=== PATIENT | male | born 1935 | race African-American/Black ===

== ENCOUNTER 2017-05-24 09:44 | Inpatient (IN) | payer MEDICARE ==
--- NOTE | ~2017-05-24 | OR ---
Unit #: [id number] #: [id number] Patient: DELMIS ELISE [id number] [address] [address] [id number] I MR#: [id number] NAME: DELMIS ELISE. ROOM: [facility] Date of Procedure: 05/24/2017 Admission Date: 05/24/2017 Surgeon: Tony Sage M.D. : 1935 Attending Physician: Tony Sage M.D. Primary Care Physician: Martinez Crockett M.D. OPERATIVE REPORT PREOPERATIVE DIAGNOSES 1. 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 2. Periprosthetic left humeral shaft fracture. POSTOPERATIVE DIAGNOSES 1. 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 2. Periprosthetic left humeral shaft fracture. PROCEDURES PERFORMED 1. Removal of left reverse shoulder arthroplasty including glenoid and humeral components. 2. Intramedullary fixation of left humeral shaft fracture. 3. Placement of antibiotic spacer. 4. Arthrotomy with debridement and extensive synovectomy of glenohumeral joint. IMPLANTS P[employer] size 10 cemented antibiotic spacer, modified for an extended length utilizing a threaded Steinmann pin. DRAFTING INSTRUCTOR Ivanna Arnold. ANESTHESIA General with interscalene nerve block. ESTIMATED BLOOD LOSS 150 mL. COMPLICATIONS None apparent. DRAINS None. SPECIMENS 1. Humeral membrane to microbiology and pathology. 2. Glenoid membrane to pathology and microbiology. 3. Culture swabs to both humeral and glenoid components. Unit #: [id number] #: [id number] Patient: DELMIS ELISE INDICATIONS FOR PROCEDURE Mr. Elise is an 82-year-old gentleman, who has undergone a previous left reverse shoulder arthroplasty. He initially experienced a dislocation in the postoperative period and cyst developed a large hematoma and seroma. When this was discovered, he underwent a revision operation, which initially did well. He did not develop a radiolucent line postoperatively now. Since February, he had developed rapid progressive destructive osteolysis of the humeral metaphysis and proximal diaphysis. He presented with increase in pain in his left shoulder. He was found to have a periprosthetic humerus fracture. The overall findings were consistent with an infectious process. We discussed explantation of all components, placement of an antibiotic spacer, and stabilization of the humerus fracture with intramedullary nail and antibiotic intramedullary nail from the antibiotic spacer. He elected to proceed. DESCRIPTION OF PROCEDURE The patient was identified in the preoperative holding area. The operative site was marked. A regional block was performed. The patient was brought to the operating room and placed supine on the operating table. Preoperative antibiotics were held, pending cultures. A general anesthetic was induced. The patient was positioned in a beach-chair position. The left upper extremity was prepped and draped in sterile fashion. The previous incision was reopened. Dissection carried down through subcutaneous tissues. The deltopectoral interval was identified. Soft tissue flaps were elevated medially and laterally. The deltopectoral interval was divided and dissection carried down to the humerus itself. Rather than immediately encountering humeral bone, proximally the metaphysis being encountered directly cement mantle and the proximal portion of the implant. There was an extensive osteolysis proximally with essentially no discernible bone around the rim of the implant. There was a small fragment at proximal bone posteriorly. The shoulder was dislocated anteriorly. The humeral component was removed easily by hand. The complete cement mantle was intact completely well adhered to the implant. There was no bonding or remaining cement to the pit river host bone. The humeral membrane was taken for specimen for pathology and microbiology. The implant was swabbed for cultures. The canal was curetted. We then drilled out the cement restrictor and reamed down into the intact shaft distally. This was done under C-arm imaging. Attention was then turned to the glenoid component. The glenosphere was removed. There was an infectious appearing membrane behind the implant. This was taken again for pathology and microbiology. The implant itself was again swabbed, removed all the peripheral locking screws and the base plate itself unscrewed. It was not ingrown to the underlying glenoid. Although, it was not grossly loose as the humeral component was. The glenohumeral joint was then extensively debrided, removing all infectious appearing membrane type tissue and synovium. The joint was debrided with a combination of Bovie electrocautery, curettes, rongeurs, and sharp excisional debridement with a knife and Metzenbaum scissors. Attention was turned back to the humerus. We reamed the canal and determined to accept a size 10 stem. This was confirmed under C-arm imaging. We then mixed antibiotic cement with additional vancomycin powder into the prefabricated mold. Threaded Steinmann pin was advanced the cement was curing. Once this was secured, the mold was Unit #: [id number] #: [id number] Patient: DELMIS ELISE removed and then another batch of cement mixed. A 32-Polish chest tube was used to inject cement around the distal portion of the threaded Steinmann pin. This was then removed, giving us a long spacer to effectively span the humerus fracture. The fracture was reduced under C-arm imaging. The antibiotic spacer was then passed across the fracture under C-arm imaging to provide some stabilization at this level. Another third batch of cement was then mixed in the proximal component, then loosely cemented around metaphyseal bone. This was allowed to cure. Prior to cementing in the implant, we had irrigated with dilute Betadine solution followed by pulsatile lavage. The wound was then closed in a layered fashion with 0 PDS, 2-0 PDS, and a running Monocryl in the skin. DISPOSITION Stable to the recovery room. Dictated by... Robert Soto/aniya TD: 05/25/2017 15:23 JOB #: [id number] OPERATIVE REPORT Page 1 of 1 X Tony Sage MD PROCEDURE OPERATIVE NOTE
--- NOTE | ~2017-05-24 | DS ---
Unit #: [id number] #: [id number] Patient: DELMIS ELISE [id number] [address] [address] [id number] I MR#: [id number] NAME: DELMIS ELISE. ROOM: [facility] Age: 82 Sex: M Admission Date: 05/24/2017 : 1935 Discharge Date: 05/27/2017 Attending Physician: Tony Sage M.D. Primary Care Physician: Martinez Crockett M.D. DISCHARGE SUMMARY ADMITTING DIAGNOSIS Left reverse shoulder arthroplasty infection. DISCHARGE DIAGNOSIS Status post hardware removal with antibiotic spacer in the left shoulder and periprosthetic fracture. HISTORY OF PRESENT ILLNESS The patient is an 82-year-old male, who had undergone reverse shoulder arthroplasty by Dr. Sage. He is having increased left shoulder pain and presented to the office after falling approximately a week prior to his appointment that was on May 23, 2017. PAST MEDICAL HISTORY 1. Allergic rhinitis. 2. Arthritis. 3. 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 4. Gastroesophageal reflux disease. 5. Total knee arthroplasty. 6. High blood pressure. 7. High cholesterol. 8. Knee pain. 9. Shoulder pain. 10. Right rotator cuff tear. 11. Type 2 diabetes. ALLERGIES Penicillin. HOSPITAL COURSE Patient with pain in left shoulder on exam. Assessment with likely infection of prosthetic after reverse shoulder arthroplasty treatment is formulated for removal of hardware, antibiotic spacer placement. Patient agrees to proceed in this manner. Patient is admitted on day of procedure, May 24, 2017. Operatively, patient was found to have a periprosthetic left humeral shaft fracture which was fixated with an intramedullary nail. Patient tolerated this procedure well and was transferred to the PACU and then consequently to the orthopedic floor without any problems. Postoperatively, patient was seen by infectious disease. Cultures taken in the operating room did not demonstrate any growth. PICC line was placed for IV antibiotics and patient is ready for discharge on postop day three. DISCHARGE MEDICATIONS Unit #: [id number] #: [id number] Patient: DELMIS ELISE 1. Glucophage 1000 mg p.o. b.i.d. 2. Bystolic 10 mg one p.o. nightly. 3. Norvasc 5 mg one p.o. daily. 4. Multivitamin one p.o. daily. 5. Protonix 40 mg once daily. 6. Vancomycin per infectious disease will be dosed per pharmacy and adjusted through [facility] who will be administering this to him in his home. He will also receive cefepime 2 g IV q.12 hours through July 05, 2017. PLAN BMP two times a week. Weekly CBC, CRP, and sed rate. All of this to be arranged through infectious disease with [facility]. PICC line to be discontinued after the last dose of his antibiotics which currently are scheduled for July 05, 2017. Patient is placed on a probiotic of choice. Followup as an outpatient as scheduled with Dr. Sage in approximately 14 days. Sling stays intact. No use of the left upper extremity. Patient will undergo daily dressing changes. [facility] to follow as mentioned for IV antibiotics through ID. Patient may shower; however, he is not to get the incision wet. He will call our office with any questions or concerns, [phone]. Dictated by... Ivanna Rajput P.A.-C. for Robert Soto/jeffery TD: 05/30/2017 14:52 JOB #: [id number] DISCHARGE SUMMARY Page 1 of 1 X Ivanna Rajput DISCHARGE SUMMARY
--- NOTE | ~2017-05-24 | CR226 ---
[facility] A Service of [facility] & [facility] RADIOLOGY TEXT RESULTS PATIENT: DELMIS ELISE [facility] 470-01 : 37 UNIT #: [id number] AGE: [address]: Tony Sage MD SEX: M ORDER DR: [id number] [facility] [address]. [place], [place] [address] [id number] I MR#: [id number] Acc #: [id number] NAME: DELMIS ELISE : 1935 SEX: M STUDY DATE/TIME: 05/24/2017 17:05 [facility] ROOM: [facility] STUDY DESCRIPTION: CR Shoulder 1 View Lt Attending Physician: Tony Sage M.D. Ordering Physician: Tony Sage M.D. Primary Care Physician: Martinez Crockett M.D. MEDICAL IMAGING REPORT This report is preliminary unless electronic signature is present EXAMINATION Fluoroscopy up to 1 hour. DATE 05/24/2017 HISTORY Left shoulder prosthesis removal. COMPARISON Left shoulder radiograph, 05/23/2017. FINDINGS Seven spot intraoperative fluoroscopic images were obtained of the left shoulder by Dr. Sage, with 1 minute, 35 seconds fluoroscopy time recorded. Preexisting left shoulder prosthesis appears to have been removed and a cement spacer device with long intramedullary hung is seen stabilizing a fracture of the midshaft of the left humerus. Please refer to operative report for additional findings and recommendations. Dictated by... Tiki Bansal M.D. THIS IS AN ELECTRONICALLY VERIFIED REPORT Tiki Bansal M.D. at 05/25/2017 10:03 AM VERONICA/nancy TD: 05/24/2017 22:59 JOB #: [id number] MEDICAL IMAGING REPORT Page 1 of 1 COPY
--- NOTE | ~2017-05-24 | CO ---
Unit #: [id number] #: [id number] Patient: DELMIS ELISE [id number] [address] [place], [place] [address] [id number] I MR#: [id number] NAME: DELMIS ELISE. ROOM: [facility] Age: 82 Sex: M Admission Date: 05/24/2017 : 1935 Attending Physician: Tony Sage M.D. Primary Care Physician: Martinez Crockett M.D. Consultation Date: 05/25/2017 CONSULTATION REPORT REASON FOR CONSULTATION Antibiotic management in a patient with left shoulder arthroplasty infection. HISTORY OF PRESENT ILLNESS This is an 82-year-old pleasant male who has a history of left shoulder arthroplasty in October of 2016 for revision in November of 2016 secondary to dislocation. The patient reports that he since has developed some progressive pain and he had imaging and the doctors told him it was infected. He is now status post hardware removal secondary to left shoulder arthroplasty infection. Cultures and pathology are currently pending and the patient has been placed on vancomycin. Per the patient, he has an allergy to penicillin which causes hives and rash and he is unaware if he has ever taken any cephalosporins. ID was asked to evaluate for further antibiotic management. PAST MEDICAL HISTORY As previously stated above, also including allergic rhinitis, arthritis, GERD, hypertension, hyperlipidemia, diabetes type 2 and history of total knee replacement. SOCIAL HISTORY The patient lives with his who is retired nurse. He denies any alcohol, tobacco or drug use. ALLERGIES Penicillin causes hives and rash. MEDICATIONS The patient is currently on vancomycin. Other medications have been reviewed. Please refer to patient's MAR. REVIEW OF SYSTEMS The patient denies any fever, chills, nausea, vomiting, diarrhea at home. He reports that he never had any drainage from his incision site and it was intact. However, he had progressive pain. Patient currently complains of numbness and tingling in his hand when he lays flat and he has some pain in his shoulder at this time. PHYSICAL EXAMINATION GENERAL APPEARANCE: This is a no apparent distress male sitting on the side of the bed comfortably. VITAL SIGNS: Temperature 98.8. Pulse 86. Blood pressure 98/55. Respiratory rate 16. Unit #: [id number] #: [id number] Patient: DELMIS ELISE HEENT: His pupils are equal. NECK: Supple. CARDIOVASCULAR: S1, S2. Regular rate and rhythm. PULMONARY: Clear to auscultation bilaterally with no wheezes or rhonchi noted. ABDOMEN: Positive bowel sounds. Soft and nontender. EXTREMITIES: Left shoulder is currently in a dressing and a sling is in place. DIAGNOSTIC STUDIES LABORATORY: BUN 17, creatinine 0.5, sodium 139, potassium 3.7, chloride 107, CO2 26, CRP 0.5. WBC 9.1, hemoglobin 10.7, hematocrit 31.5, platelets 163. Sed rate 23. MICROBIOLOGY: Shoulder cultures are currently pending. IMAGING: Shows removal of the hardware. IMPRESSION This is an 82-year-old male with history of left shoulder arthroplasty in October 2016 with a revision in November of 2016 secondary to dislocation. The patient now has developed progressive pain and is found to have infection of his left shoulder arthroplasty. This has been removed and antibiotic beads and spacer have been placed. At this time, would recommend to continue vancomycin. We will add gram-negative coverage with Levaquin due to patient's history of penicillin allergy of hives and rash and never taking cephalosporins in the past. We will continue to follow OR cultures and pathology results. We will follow the patient's lab work. We will anticipate patient will need six weeks of antibiotic therapy and I will discuss with patient's the plan per the patient's request. Thank you for allowing us to participate in the care of this patient. Further recommendations will follow pending patient's clinical course. Dictated by... Sheba Ferrer, A.P.R.N. for Krishna Malagon M.D. Tim TD: 05/25/2017 09:24 JOB #: [id number] CONSULTATION REPORT Page 1 of 1 X X CONSULTATION REPORT
--- NOTE | ~2017-05-24 | CR229 ---
[facility] A Service of [facility] RADIOLOGY TEXT RESULTS PATIENT: DELMIS ELISE LOCATION: [facility] 470-01 : 37 UNIT #: [id number] AGE: [address]: Tony Sage MD SEX: M ORDER DR: [id number] [facility] [address] [place], [place] [address] [id number] I MR#: [id number] Acc #: [id number] NAME: DELMIS ELISE. : 1935 SEX: M STUDY DATE/TIME: 05/24/2017 20:14 UNIT: [facility] ROOM: [facility] STUDY DESCRIPTION: CR Shoulder Min 2 View Lt Attending Physician: Tony Sage M.D. Ordering Physician: Thong Heller M.D. Primary Care Physician: Martinez Crockett M.D. MEDICAL IMAGING REPORT This report is preliminary unless electronic signature is present EXAM Left shoulder series, dated 05/24/2017. COMPARISON Left shoulder series dated 05/24/2017, and 05/23/2017. HISTORY Pain and swelling postop in the left shoulder on 05/24/2017. FINDINGS Three images of attempted three views of the left shoulder are given. Postoperative changes are noted in the left shoulder with change in the prosthesis. Correlate with operative note. Postoperative changes are noted with subcutaneous and probably some joint air. Well-defined left acromion is not seen, and there are bony changes which appears to be dystrophic. It is chronic appearing. No obvious well-defined acute abnormality of the scapula is seen. There is a horizontally oriented minimally displaced fracture of the mid portion of the left humeral shaft which is also seen in the prior left shoulder series from yesterday. IMPRESSION 1. Interval change in the left shoulder prosthesis as noted with postoperative changes as expected. 2. Previously noted horizontally oriented fracture involving the mid-shaft of the left humerus is again noted with mild displacement. There is an intramedullary hung noted with cement. Lucency is noted in the region of the left shoulder joint and adjacent soft tissues, likely related to postoperative air in this region. Correlate with operative note. There is chronic deformity in the left acromioclavicular joint also. STS. [facility] A Service of [facility] RADIOLOGY TEXT RESULTS PATIENT: DELMIS ELISE LOCATION: [facility] 470-01 : 37 UNIT #: [id number] AGE: [address]: Tony Sage MD SEX: M ORDER DR: Dictated by... Jo Ann Vale M.D. THIS IS AN ELECTRONICALLY VERIFIED REPORT Jo Ann Vale M.D. at 05/26/2017 12:01 PM CPR/jt TD: 05/24/2017 22:49 JOB #: [id number] MEDICAL IMAGING REPORT Page 1 of 1 COPY
--- NOTE | ~2017-05-24 | EKG ---
PATIENT: DELMIS ELISE UNIT #: [id number] Ventricular Rate: 59 BPM Atrial Rate: 59 BPM P-R Interval: 174 ms QRS Duration: 92 ms Q-T Interval: 410 ms QTC Calculation(Bezet): 405 ms P Starr: -15 degrees Calculated R Starr: 0 degrees Calculated T Starr: 44 degrees Diagnosis Line: Sinus bradycardia with sinus arrhythmia Diagnosis Line: Otherwise normal ECG Diagnosis Line: When compared with ECG of 15-NOV-2016 11:31, Diagnosis Line: No significant change was found Diagnosis Line: Confirmed by JOLYNN CALLOWAY MD ([id number]) on Diagnosis Line: 05/24/2017 11:12:34 AM INTERPRETING MD: MADALYN
[~2017-05-24 09:44] MED LIST: ACIPHEX20 MG PO; BYSTOLIC10 MG PO; CERTAGEN PO; GLUCOVANCE PO; HYDROCODON-ACE1 EAC5 PO; HYDROCODON-ACE1 EAC7 PO; LIPITOR PO; METFORMIN PO; MOBIC PO; MOBIC15 MG PO; MULTI VITAMIN1 EACH PO; NORVASC PO; PERCOCET5/325 PO; PROTONIX PO; SKELAXIN PO
[2017-05-24] MEDS ORDERED: MOBIC PO (10:08)
[2017-05-24 10:31] LABS: HEMOGLOBIN 12.2 gm/dL (13.0-16.0); MEAN CELL VOLUME 89.1 FL (83-96); MEAN CORPUSCULAR HEMOGLOBIN 29.4 PG (28-34); MEAN CORPUSCULAR HGB CONC 32.9 g/dL (30-36); MEAN PLATELET VOLUME 8.6 FL (6.5-11.5); RED BLOOD COUNT 4.15 X10e (3.90-5.60); WHITE BLOOD COUNT 5.1 X10e3 (4.0-10.5)
[2017-05-24 11:00] LABS: CALCIUM SERUM 9.1 mg/dL (8.4-10.2); CREATININE SERUM 0.5 mg/dL (0.6-1.4); GLOM FILT RATE Estimated 118.7 mL/min (>60); POTASSIUM 3.7 mmol/L (3.5-5.1)
[2017-05-25 04:03] LABS: HEMATOCRIT 31.5 % (38.0-50.0); HEMOGLOBIN 10.7 gm/dL (13.0-16.0); MEAN CELL VOLUME 89.3 FL (83-96); MEAN CORPUSCULAR HEMOGLOBIN 30.3 PG (28-34); MEAN PLATELET VOLUME 8.8 FL (6.5-11.5); RED BLOOD COUNT 3.53 X10e (3.90-5.60); RED CELL DISTRIBUTION WIDTH 15.3 % (11.0-15.5)
[2017-05-25 04:07] LABS: WHITE BLOOD COUNT 9.1 X10e3 (4.0-10.5)
[2017-05-26 03:20] LABS: HEMATOCRIT 27.1 % (38.0-50.0); MEAN CELL VOLUME 89.3 FL (83-96); MEAN CORPUSCULAR HEMOGLOBIN 29.8 PG (28-34); MEAN CORPUSCULAR HGB CONC 33.4 g/dL (30-36); RED BLOOD COUNT 3.03 X10e (3.90-5.60); WHITE BLOOD COUNT 7.5 X10e3 (4.0-10.5)
[2017-05-26 03:48] LABS: BUN/CREATININE RATIO 21.42; CALCIUM SERUM 8.1 mg/dL (8.4-10.2); CREATININE SERUM 0.7 mg/dL (0.6-1.4); GLOM FILT RATE Estimated 103.3 mL/min (>60); POTASSIUM 3.4 mmol/L (3.5-5.1)
[2017-05-27] MEDS ORDERED: PERCOCET5/325 PO (12:35)
[2017-05-27] MEDS ORDERED: CEFEPIME HCL2 GM IV (12:37)
[2017-05-27] MEDS ORDERED: VANCOMYCIN1.75 GM/50 IV (12:39)
== END 2017-05-27 14:05 | disposition home health service (06) | DRG 497 ==
LOC: CSUR 09:44 → C4C 09:51 → CPACUOF 09:51 → CSUR 10:00 → CPACUOF 19:22 → C4C 21:13 → CPACUOF 21:13 → C4C 05-27 14:05
PROVIDERS: Orthopaedic Surgery
PROC: 0RHK08Z Insertion of Spacer into Left Shoulder Joint, Open Approach (ICD-10-PCS; 2017-05-24)
PROC: 0RPK0JZ Removal of Synthetic Substitute from Left Shoulder Joint, Open Approach (ICD-10-PCS; principal; 2017-05-24 13:00)
PROC: 0RBK0ZZ Excision of Left Shoulder Joint, Open Approach (ICD-10-PCS; 2017-05-24 13:00)
DX: T84.59XA Infection and inflammatory reaction due to other internal joint prosthesis, initial encounter (principal); T84.038A Mechanical loosening of other internal prosthetic joint, initial encounter; E11.9 Type 2 diabetes mellitus without complications; M97.32XA Periprosthetic fracture around internal prosthetic left shoulder joint, initial encounter; T84.058A Periprosthetic osteolysis of other internal prosthetic joint, initial encounter; K21.9 Gastro-esophageal reflux disease without esophagitis; Z87.442 Personal history of urinary calculi; E78.5 Hyperlipidemia, unspecified; Z87.891 Personal history of nicotine dependence; M19.90 Unspecified osteoarthritis, unspecified site; Z88.0 Allergy status to penicillin; Z98.49 Cataract extraction status, unspecified eye; Z79.84 Long term (current) use of oral hypoglycemic drugs
CPT/HCPCS: 73020; 73030; 76000; 80048; 82947; 85027; 85652; 86140; 87070; 87075; 87205; 88305; 93005; 94760; 97110; 97116; 97161; 97530; C1776; G8978-GP; G8979-GP; G8980-GP; J0330; J0692; J1170; J1815; J1956; J2250; J2405; J2795; J3010; J3370

== ENCOUNTER 2017-05-28 10:36 | Emergency (ER) | payer MEDICARE ==
[~2017-05-28 10:36] MED LIST changes: +CEFEPIME HCL2 GM IV; +VANCOMYCIN1.75 GM/50 IV
== END 2017-05-28 12:25 | disposition home or self-care (01) ==
LOC: CED 10:36
DX: M96.831 Postprocedural hemorrhage of a musculoskeletal structure following other procedure (principal); E11.9 Type 2 diabetes mellitus without complications; I10 Essential (primary) hypertension; Z88.0 Allergy status to penicillin; Z88.8 Allergy status to other drugs, medicaments and biological substances; Z88.5 Allergy status to narcotic agent; Z79.84 Long term (current) use of oral hypoglycemic drugs; Z79.899 Other long term (current) drug therapy
CPT/HCPCS: 99283